=== PATIENT | male | born 1995 | race Caucasian/White ===

== ENCOUNTER 2017-02-26 17:07 | Emergency (ER) | payer BC ==
[2017-02-26 17:10] VITALS: RESP 16; TEMP 97.5; O2SAT 96
--- NOTE | 2017-02-26 18:10 | EDPHY ---
H & P Stated Complaint: DOG BITE Time Seen by Provider: 02/26/17 17:19 HPI/ROS: CHIEF COMPLAINT: Dog bite HISTORY OF PRESENT ILLNESS: 21-year-old male presents to the emergency department with a laceration to his upper lip from a dog bite. Dog's rabies vaccination is up-to-date. Patient's tetanus is up-to-date. This occurred just prior to arrival. Patient reports the pain is sharp and burning in nature , moderate. No other complaints. Animal Control has been notified. Source: Patient Exam Limitations: No limitations - Personal History Current Tetanus/Diphtheria Vaccine: Yes Current Tetanus Diphtheria and Acellular Pertussis (TDAP): Yes - Medical/Surgical History Hx Asthma: No Hx Chronic Respiratory Disease: No Hx Diabetes: No Hx Cardiac Disease: No Hx Renal Disease: No Hx Cirrhosis: No Hx Alcoholism: No Hx HIV/AIDS: No Hx Splenectomy or Spleen Trauma: No Other PMH: HX: OCD, DEPRESSION, FEMUR REPAIR - Social History Smoking Status: Current some day smoker - Physical Exam Exam: GEN: Awake, alert, oriented, no acute distress RESP: nl resp effort MSK: Normal appearing SKIN: 1 cm vertical laceration to upper left side of lip through the vermilion border Constitutional: Initial Vital Signs Temperature (C) 36.4 C 02/26/17 17:09 Heart Rate 96 02/26/17 17:09 Respiratory Rate 16 02/26/17 17:09 Blood Pressure 122/71 H 02/26/17 17:09 O2 Sat (%) 96 02/26/17 17:09 O2 Delivery Mode Room Air Allergies/Adverse Reactions: No Known Allergies Allergy (Unverified 11/08/13 20:00) Home Medications: Medication Instructions Recorded Hydrocodone/APAP 5/325 [[place] 1 tab PO Q4 PRN #15 tab 11/08/13 5/325 (RX)] Amoxicillin/Clavulanate Pot 875 mg PO BID #14 tab 02/26/17 [Augmentin 875Mg] Medical Decision Making Procedures: Procedure: Laceration repair. Verbal consent was obtained from the patient. The 1 cm laceration on the upper lip was anesthetized using 1% lidocaine without epinephrine mixed with 0.5 % bupivacaine without epinephrine. The wound was carefully irrigated by the emergency department it help desk technician. Next, the wound was prepped and draped in sterile fashion and explored to its base with a gloved finger. There were no deep structures involved. No tendon injury was identified. Small vessel lacerated, not bleeding. No foreign bodies were identified. The wound was repaired with 6.0 Prolene, 8 simple interrupted sutures. The wound repair was my complex. Multiple flaps required alignment. Significant debridement was required. The procedure was performed by myself. Tetanus and antibiotic status were addressed. ED Course/Re-evaluation: Laceration sutured without difficulty, jeane border aligned without difficulty. Pt tolerated procedure well. He is placed on Augmentin prophylactically as this is a dog bite. I discussed the risks of infection with the patient though due to cosmetic reasons his laceration was sutured. He is given strict return precautions. Departure - Departure Disposition: Home, Routine, Self-Care Clinical Impression: Dog bite of vermilion of upper lip Qualifiers: Encounter type: initial encounter Qualified Code(s): S01.551A - Open bite of lip, initial encounter Condition: Good Instructions: Amoxicillin/Clavulanate Potassium (By mouth), Animal Bite (ED), Facial Laceration (ED) Additional Instructions: Place antibiotic ointment to laceration several times per day. Return to the ED in 5 days for suture removal. Return sooner for any signs of infection: increased pain, redness, drainage, fevers. Take 875mg of Augmentin twice daily for 7 days. Take 600mg of ibuprofen every 8 hours with food as needed for pain. Prescriptions: Amoxicillin/Clavulanate Pot [Augmentin 875Mg] 875 mg PO BID #14 tab
[2017-02-26] MEDS ORDERED: AMOXICILLIN/CLAVULANATE POT 875/125 MG TAB PO ONE (18:13)
[2017-02-26 19:02] VITALS: BP 121/69; PULSE 79
== END 2017-02-26 19:09 | disposition home or self-care (01) ==
PROC: 0CQ0XZZ Repair Upper Lip, External Approach (ICD-10-PCS; principal; 2017-02-26)
DX: S01.551A Open bite of lip, initial encounter (principal); F17.200 Nicotine dependence, unspecified, uncomplicated; W54.0XXA Bitten by dog, initial encounter; Y99.8 Other external cause status

== ENCOUNTER 2017-03-31 20:14 | Emergency (ER) | payer BC ==
--- NOTE | 2017-03-31 20:51 | EDPHY ---
H & P Smoking Status: Never smoked Time Seen by Provider: 03/31/17 20:42 HPI/ROS: CHIEF COMPLAINT: Hydrogen peroxide ingestion HISTORY OF PRESENT ILLNESS: Patient was at a customer's house and said he was feeling a little sick and she asked him to drink some diluted hydrogen peroxide. He said he has had some congestion and a nonproductive cough for a couple of days, a "cold." It started as "food grade 35%" but it was diluted an unknown amount by this customer, and he drank a whole 1L water bottle. Belching now but no other symptoms. Presents for evaluation "to be safe." REVIEW OF SYSTEMS: Eye: No visual symptoms ENT: Some congestion but no sore throat or trouble swallowing Cardiac: no chest pain or syncope Pulmonary: Nonproductive cough but not short of breath Abdomen: no vomiting, diarrhea, abdominal pain Musculoskeletal: no back pain Skin: no rash Neuro: no headache Constitutional: no fever : no urinary symptoms A comprehensive 10 point review of systems is otherwise negative aside from elements mentioned in the history of present illness. PAST MEDICAL HISTORY: OCD, depression, femur repair Social history: Here with his girlfriend General Appearance: Alert and conversant, cooperative. Eyes: No scleral icterus. ENT, Mouth: Normal mucous membranes. No intraoral [place]. Respiratory: Normal respiratory effort, breath sounds equal, lungs are clear to auscultation. No stridor. Cardiovascular: Regular rate and rhythm. Gastrointestinal: Abdomen is soft and non tender. Neurological: Alert and oriented x3. Normally conversant. Face symmetric, normal movement and sensation in all extremities. Skin: Warm and dry, no rashes. Musculoskeletal: No peripheral edema and no joint swelling. Psychiatric: Not agitated. Emergency Department course/MDM: Poison Control consulted. Pulse not documented triage, on my exam is between 60 and 70. Case # [id number]; risk for air emboli, observe for at least 4 hours. Currently the patient is asymptomatic. Plan to observe until 11:15 p.m. Signed out to Rosa at 2200 with plan as above. (Adan Allen) Constitutional: Initial Vital Signs Temperature (C) 37.0 C 03/31/17 20:18 Respiratory Rate 18 03/31/17 20:18 Blood Pressure 145/72 H 03/31/17 20:18 O2 Sat (%) 97 03/31/17 20:18 O2 Delivery Mode Room Air Allergies/Adverse Reactions: No Known Allergies Allergy (Unverified 11/08/13 20:00) Home Medications: Medication Instructions Recorded NK [No Known Home Meds] 03/31/17 MDM/Departure - [facility] ED Course/Re-evaluation: 11:15 p.m.- The patient has remained stable during my shift. He says he is actually feeling much better. The mild amount of gastric upset that he had has now completely resolved. He denies any chest pain, shortness of breath, headache, weakness of his arms or legs. He would like to go home and will be discharged. Repeat vital signs are unremarkable. (Ericka Lee) - Depart Disposition: Home, Routine, Self-Care Clinical Impression: hydrogen peroxide ingestion Condition: Good Instructions: Hydrogen Peroxide (By mouth) Referrals: Tye Vieira MD [Primary Care Provider] - As per Instructions
[2017-03-31 23:18] VITALS: BP 104/74; PULSE 54; RESP 16; TEMP 97.9; O2SAT 98
== END 2017-03-31 23:18 | disposition home or self-care (01) ==
DX: T49.0X1A Poisoning by local antifungal, anti-infective and anti-inflammatory drugs, accidental (unintentional), initial encounter (principal)